=== PATIENT | female | born 1990 | race Caucasian/White ===

== ENCOUNTER 2023-06-15 18:27 | Emergency (ER) | payer MEDICAID ==
[~2023-06-15] VITALS: Ht 157.5 cm; Wt 108.5 kg
[~2023-06-15 18:27] MED LIST: PREN-385 PO
[2023-06-15 18:30] VITALS: BP 146/94; PULSE 129; RESP 18; TEMP 98.7; O2SAT 100
[2023-06-15 18:41] VITALS: BP 146/94; PULSE 129; RESP 18; TEMP 98.7
[2023-06-15] MEDS ORDERED: KETOROLAC 30 MG/ML VIAL ONE (18:54)
[2023-06-15] MEDS: MORPHINE SULFATE 4 MG/ML SYR IM ONE (18:57)
[2023-06-15] MEDS: KETOROLAC 30 MG/ML VIAL IM ONE (18:59)
[2023-06-15] MEDS: LIDOCAINE 5% 1 EA PATCH TP ONE (19:00)
[2023-06-15 19:14] VITALS: O2SAT 100
[2023-06-15] MEDS ORDERED: CYCL-711 PO (19:46)
[2023-06-15] MEDS ORDERED: ACET-10509 PO (19:46)
[2023-06-15] MEDS ORDERED: LID5T TP (19:46)
[2023-06-15] MEDS ORDERED: IBUP-2213 PO (19:46)
== END 2023-06-15 20:05 | disposition home or self-care (01) ==
LOC: MED 18:27
DX: S20.211A Contusion of right front wall of thorax, initial encounter (principal); Z79.899 Other long term (current) drug therapy; W18.39XA Other fall on same level, initial encounter; Y92.89 Other specified places as the place of occurrence of the external cause; Y93.89 Activity, other specified; Y99.8 Other external cause status
CPT/HCPCS: 71101; 81025; 96372; 99284; J1885; J2270

== ENCOUNTER 2023-06-18 15:38 | Emergency (ER) | payer MEDICAID ==
[~2023-06-18] VITALS: Ht 157.5 cm; Wt 108.0 kg
[~2023-06-18 15:38] MED LIST changes: +ACET-10509 PO; +CYCL-711 PO; +IBUP-2213 PO; +LID5T TP
[2023-06-18 15:45] VITALS: BP 153/87; PULSE 105; RESP 16; TEMP 98.5; O2SAT 98
[2023-06-18] MEDS: KETOROLAC 30 MG/ML VIAL IM ONE (18:10)
== END 2023-06-18 18:20 | disposition home or self-care (01) ==
LOC: MED 15:38
DX: S42.291A Other displaced fracture of upper end of right humerus, initial encounter for closed fracture (principal); Z79.899 Other long term (current) drug therapy; W18.30XA Fall on same level, unspecified, initial encounter; Y93.89 Activity, other specified; Y92.89 Other specified places as the place of occurrence of the external cause; Y99.8 Other external cause status
CPT/HCPCS: 29105; 73030; 96372; 99283; J1885